=== PATIENT | male | born 1980 | race Native Hawaiian/Other Pacific Islander ===

== ENCOUNTER 2016-11-05 09:53 | Emergency (ER) | payer OTHER ==
[2016-11-05 10:48] LABS: BASO % 0.7 % (0.0-1.0); EOS # 0.2 K/mm3 (0.0-0.50); EOS % 2.7 % (0.0-3.0); LARGE UNSTAINED CELL # 0.1 K/mm3 (0.0-0.4); LARGE UNSTAINED CELL % 1.8 % (0.0-4.0); LYMPH # 1.8 K/mm3 (1.5-4.5); LYMPH % 30.5 % (24.0-44.0); MEAN CORPUSCULAR HEMOGLOBIN 29.7 pg (27.0-33.0); MEAN CORPUSCULAR HGB CONC 33.5 g/dl (32.0-36.5); MEAN CORPUSCULAR VOLUME 88.4 fl (80.0-96.0); MONO # 0.3 K/mm3 (0.0-0.8); NEUTROPHILS # 3.3 K/mm3 (1.8-7.7); NEUTROPHILS % 58.3 % (36.0-66.0); PLATELET COUNT, AUTOMATED 258 k/mm3 (150-450); RED CELL DISTRIBUTION WIDTH 12.6 % (11.5-14.5); WHITE BLOOD COUNT 5.7 K/mm3 (4.0-10.0)
--- NOTE | 2016-11-05 11:03 | REP ---
CT abdomen pelvis without IV and oral contrast: There are no comparisons. The visualized lung cruz are unremarkable. The unenhanced hepatic parenchyma, gallbladder, pancreas and spleen are unremarkable. The adrenals, unenhanced kidneys and abdominal aorta are unremarkable. There is no bowel distension. Pelvis: There are diverticula in the descending colon. There is pericolonic inflammation adjacent to the distal descending colon and proximal sigmoid colon compatible with diverticulitis. There is no pericolonic abscess. No pneumoperitoneum. However, there is a small focal density compatible with calcification at the lateral margin of the distal descending colon, extraluminal, within the area of inflammation of uncertain significance, possibility of perforated ingested material is raised. There is no ascites or adenopathy. The bladder is unremarkable. The appendix is not identified by CT there is no pericecal inflammation. Impression: Diverticulosis of the distal descending colon without pericolonic abscess. However, there is an extraluminal calcific density adjacent to the distal descending colon, possibly perforated ingested material. No ascites or pneumoperitoneum. No bowel distension. Signed by Dakotah Anders MD 11/05/2016 10:55 A
[2016-11-05 11:14] LABS: ALBUMIN 4.3 GM/DL (3.2-5.2); ALBUMIN/GLOBULIN RATIO 0.98 (1.00-1.93); BILIRUBIN,DIRECT 0.1 MG/DL (0.0-0.2); BILIRUBIN,TOTAL 0.9 MG/DL (0.2-1.0); CALCIUM LEVEL 9.3 MG/DL (8.5-10.1); CREATININE FOR GFR 1.63 MG/DL (0.70-1.30); GLOMERULAR FILTRATION RATE 51.5 (>60); POTASSIUM SERUM 3.9 MEQ/L (3.5-5.1); TOTAL PROTEIN 8.7 GM/DL (6.4-8.2)
[2016-11-05] MEDS ORDERED: metroNIDAZOLE/NACL 500MG(5MG/ML)100 ML BAG (S0030) As Ordered ONE (11:22)
[2016-11-05] MEDS ORDERED: CIPROFLOXACIN/D5W 400 MG/200 ML BAG (J0744) As Ordered ONE (11:22)
--- NOTE | 2016-11-05 14:12 | EDDOCDS ---
Physician Documentation [facility] Name: Eliseo Powell Age: 36 yrs Sex: Male : 1980 Arrival Date: 11/05/2016 Time: 09:53 Bed I4 / M4 Private MD: Etta [facility] [place] Disposition: 11/05/16 13:58 Discharged to Home/Self Care. Impression: Diverticulitis of large intestine with perforation and abscess without bleeding - OK TO D/C HOME PER DR. MILLS. - Condition is Stable. - Discharge Instructions: Diverticulitis. - Prescriptions for Cipro 500 mg Oral Tablet - take 1 tablet by ORAL route every 12 hours; 14 tablet. Flagyl 500 mg Oral Tablet - take 1 tablet by ORAL route every 8 hours for 10 days; 30 tablet. - Medication Reconciliation, Local Pharmacy Hours form. - Follow up: Jeet Mills MD; When: 1 - 2 days; Reason: Further diagnostic work-up, Recheck today's complaints, Continuance of care. - Problem is new. - Symptoms are unchanged. Historical: - Allergies: Ibuprofen (Upset stomach); - Home Meds: 1. none - PMHx: none; - PSHx: Appendectomy; right ACL; - Social history: No barriers to communication noted, The patient speaks fluent Frisian, Speaks appropriately for age, Smoking status: Patient uses tobacco products, light tobacco smoker. - Family history: Not pertinent. - : The pt / caregiver states he / she is not on anticoagulants. Home medication list is obtained from the patient. - Exposure Risk Screening:: None identified. Vital Signs: 11/05 09:55 BP 133 / 83; Pulse 65; Resp 16; Temp 98.3(O); Pulse Ox 96% on R/A; Weight 95.25 kg / elp 209.99 lbs (R); Height 5 ft. 6 in. (167.64 cm) (R); Pain 6/10; 13:25 BP 145 / 80; Pulse 60; Resp 18; Temp 96.3(O); Pulse Ox 100% on R/A; Pain 0/10; jml1 09:55 Body Mass Index 33.89 (95.25 kg, 167.64 cm) elp MDM: 10:33 Amylase Ordered. EDMS 10:34 Basic Metabolic Profile Ordered. EDMS 10:34 CBC with Diff Ordered. EDMS 10:34 Lipase Ordered. EDMS 10:34 Liver Profile Ordered. EDMS 10:34 CT ABD & PELVIS: No Contrast Ordered. EDMS 10:34 NOTHING BY MOUTH+DIET ordered. EDMS 10:35 GASTROINTESTINAL (GI) PANEL Ordered. EDMS 11:20 IV Saline Lock ordered. btw 11:20 Ciprofloxacin 400 mg IVPB at 200 mL/hr once over 60 mins ordered. btw 11:20 metroNIDAZOLE 500 mg IV at 100 mL/hr once over 60 mins ordered. btw 11:21 Basic Metabolic Profile Reviewed. btw 11:21 CBC with Diff Reviewed. btw 11:21 Liver Profile Reviewed. btw 11:21 Amylase Reviewed. btw 11:21 Lipase Reviewed. btw 13:55 Financial registration complete. mm15 14:05 [facility] Payment Agreement was scanned into [employer] and attached to record. mm15 Administered Medications: 11:28 Drug: Ciprofloxacin 400 mg [ciprofloxacin 400 mg/200 mL in 5 % dextrose intravenous mk4 piggyback] Route: IVPB; Rate: 200 mL/hr; Infused Over: 60 mins; Site: right antecubital; 12:37 Follow up: IV Status: Completed infusion; IV Intake: 200ml mcp 12:35 Drug: metroNIDAZOLE 500 mg [metronidazole 500 mg/100 mL-sodium chloride(iso) mcp intravenous piggyback] Route: IV; Rate: 100 mL/hr; Infused Over: 60 mins; Site: right antecubital; Signatures: Dispatcher [employer] EDMS Alejandra Simons RN RN jo3 Paolo Law PA PA btw Ha Cheng mm15 Tosin Alex RN RN mk4 Livier Thacker RN [facility] The chart was reviewed and I authenticate all verbal orders and agree with the evaluation and treatment provided.Corrections: (The following items were deleted from the chart) 10:35 10:34 GASTROINTESTINAL (GI) PANEL+NIECY ordered. EDMS EDMS 14:11 10:33 Stool samples ordered. btw mk4 Attachments: 14:05 [facility] Payment Agreement mm15 MTDD
--- NOTE | 2016-11-05 14:12 | EDDOCDS ---
Nurse's Notes [facility] Name: Eliseo Powell Age: 36 yrs Sex: Male : 1980 Arrival Date: 11/05/2016 Time: 09:53 Bed I4 / M4 Private MD: BRISA Quiles Diagnosis: Diverticulitis of large intestine with perforation and abscess without bleeding-OK TO D/C HOME PER DR. MILLS Presentation: 11/05 10:02 Presenting complaint: Patient states: Has LLQ pain for 3 days. Has also had diarrhea. jo3 Risk factors: the patient reports not having a history of previous torsion. Adult Sepsis Screening: The patient does not have new or worsening altered mentation. Patient's respiratory rate is less than 22. Systolic blood pressure is greater than 100. Patient has a qSOFA score of 0- Negative Sepsis Screen. Suicide/Homicide risk assessment- the patient denies having any suicidal and/or homicidal ideations and does not present with any other emotional, behavioral or mental health complaints. Status: The patient is a dependent. Transition of care: patient was not received from another setting of care. 10:02 Acuity: RUTH Level 3 jo3 10:02 Method Of Arrival: Walkin/Carried/Asstd jo3 Triage Assessment: 10:04 General: Appears in no apparent distress, comfortable, Behavior is appropriate for age, jo3 cooperative. Pain: Pain currently is 6 out of 10 on a pain scale. At worst was 8 out of 10 on a pain scale. HIV screening NA for this visit Offered previously. Neurological: Level of Consciousness is awake, alert, Oriented to person, place, time. Derm: Skin is pink, warm & dry. Historical: - Allergies: Ibuprofen (Upset stomach); - Home Meds: 1. none - PMHx: none; - PSHx: Appendectomy; right ACL; - Social history: No barriers to communication noted, The patient speaks fluent North Korean, Speaks appropriately for age, Smoking status: Patient uses tobacco products, light tobacco smoker. - Family history: Not pertinent. - : The pt / caregiver states he / she is not on anticoagulants. Home medication list is obtained from the patient. - Exposure Risk Screening:: None identified. Screenin:41 Screening information is obtained from the patient. Fall risk: No risks identified. jo3 Assistance ADL's: requires no assistance with activities of daily living. Abuse/DV Screen: The patient / caregiver reports he/she is: not in a situation that causes fear, pain or injury. Nutritional screening: No deficits noted. Advance Directives: There is no active DNR order. home support is adequate. Assessment: 10:41 General: Appears in no apparent distress, comfortable, Behavior is appropriate for age, jo3 cooperative, pleasant. Neurological: No deficits noted. Level of Consciousness is awake, alert, Oriented to person, place, time. Respiratory: Airway is patent Respiratory effort is even, unlabored. Derm: Skin is pink, warm & dry. 11:49 General: Appears in no apparent distress, sitting on edge of bed, IV infusing right ac, mk4 fam,stephen in room denies needs. 12:50 General: Appears in no apparent distress, Behavior is cooperative. Neurological: Level mk4 of Consciousness is awake, alert. Respiratory: Respiratory effort is even, unlabored. GI: Abdomen is non- distended. 14:08 Reassessment: Patient appears in no apparent distress at this time. Patient states mk4 feeling better. General: Appears in no apparent distress, Behavior is cooperative. GI: Abdomen is non- distended Bowel sounds present X 4 quads. Abd is tender to palpation X 4 quads. Vital Signs: 09:55 BP 133 / 83; Pulse 65; Resp 16; Temp 98.3(O); Pulse Ox 96% on R/A; Weight 95.25 kg (R); elp Height 5 ft. 6 in. (167.64 cm) (R); Pain 6/10; 13:25 BP 145 / 80; Pulse 60; Resp 18; Temp 96.3(O); Pulse Ox 100% on R/A; Pain 0/10; jml1 09:55 Body Mass Index 33.89 (95.25 kg, 167.64 cm) [facility] Vitals: 09:55 Log In Time: November 05, 2016 at 09:[address] [facility] ED Course: 09:54 Patient visited by Jory Chandler, XIOMY. elp 09:54 Etta Andrew is Private Physician. elp 09:54 Patient moved to Waiting elp 09:55 Patient visited by Jory Chandler PCA. elp 09:55 Patient moved to Pre RCE elp 10:04 Triage Initiated jo3 10:06 Patient moved to Triage 3 jo3 10:16 Paolo Law PA is PHCP. btw 10:16 Vesta Sierra MD is Attending Physician. btw 10:16 Patient visited by Paolo Law PA. btw 10:41 The patient / caregiver is instructed regarding the plan of care and ED course. jo3 10:41 Amylase Sent. jo3 10:41 Basic Metabolic Profile Sent. jo3 10:41 CBC with Diff Sent. jo3 10:41 Lipase Sent. jo3 10:41 Liver Profile Sent. jo3 10:41 Labs drawn. (by ED staff). Sent per order to lab. jo3 10:42 Patient visited by Alejandra Simons RN. jo3 10:43 Patient moved to TR2 jo3 11:08 Patient moved to I4 / M4 jo3 11:19 Patient visited by Tosin Alex, SARA. mk4 11:25 Patient visited by Livier Thacker RN. mcp 11:25 Patient has correct armband on for positive identification. Bed in low position. Call mcp light in reach. Adult w/ patient. 11:25 Inserted saline lock: 20 gauge in right antecubital area The patient tolerated the mcp procedure well. 11:45 CT ABD & PELVIS: No Contrast Returned. EDMS 11:49 No procedures done that require assistance. mk4 11:56 Patient visited by Tosin Alex RN. mk4 12:45 Patient visited by Tosin Alex, ASRA. mk4 13:19 Patient visited by Tosin Alex RN. mk4 13:26 Patient visited by Tutu Zheng. jml1 13:57 Jeet Mills MD is Referral Physician. btw 14:05 [facility] Payment Agreement was scanned into [employer] and attached to record. mm15 14:08 Discontinued IV lock bleeding controlled, pressure dressing applied. mk4 Administered Medications: 11:28 Drug: Ciprofloxacin 400 mg [ciprofloxacin 400 mg/200 mL in 5 % dextrose intravenous mk4 piggyback] Route: IVPB; Rate: 200 mL/hr; Infused Over: 60 mins; Site: right antecubital; 12:37 Follow up: IV Status: Completed infusion; IV Intake: 200ml mcp 12:35 Drug: metroNIDAZOLE 500 mg [metronidazole 500 mg/100 mL-sodium chloride(iso) mcp intravenous piggyback] Route: IV; Rate: 100 mL/hr; Infused Over: 60 mins; Site: right antecubital; Intake: 12:37 IV: 200.00ml; Total: 200.00ml. mcp Order Results: Lab Order: Amylase; SPEC'M 11/05/16 10:38 Test: AMYLASE; Value: 46; Range: 25-115; Units: U/L; Status: F Lab Order: Basic Metabolic Profile; SPEC' 11/05/16 10:38 Test: GLUCOSE, FASTING; Value: 91; Range: 70-105; Units: MG/DL; Status: F Test: BLOOD UREA NITROGEN; Value: 15; Range: 7-18; Units: MG/DL; Status: F Test: CREATININE FOR GFR; Value: 1.63; Range: 0.70-1.30; Abnormal: Above high normal; Units: MG/DL; Status: F Test: GLOMERULAR FILTRATION RATE; Value: 51.5; Range: >60; Abnormal: Below low normal; Status: F Test: SODIUM LEVEL; Value: 141; Range: 136-145; Units: MEQ/L; Status: F Test: POTASSIUM SERUM; Value: 3.9; Range: 3.5-5.1; Units: MEQ/L; Status: F Test: CHLORIDE LEVEL; Value: 106; Range: 98-107; Units: MEQ/L; Status: F Test: CARBON DIOXIDE LEVEL; Value: 29; Range: 21-32; Units: MEQ/L; Status: F Test: ANION GAP; Value: 6; Range: 8-16; Abnormal: Below low normal; Units: MEQ/L; Status: F Test: CALCIUM LEVEL; Value: 9.3; Range: 8.5-10.1; Units: MG/DL; Status: F Test Note: ; Units are mL/min/1.73 m2 Chronic Kidney Disease Staging per NKF: Stage I & II GFR >=60 Normal to Mildly Decreased Stage III GFR 30-59 Moderately Decreased Stage IV GFR 15-29 Severely Decreased Stage V GFR <15 Very Little GFR Left ESRD GFR <15 on STAFFING PROGRAM MANAGER Lab Order: CBC with Diff; SPEC'11/05/16 10:38 Test: WHITE BLOOD COUNT; Value: 5.7; Range: 4.0-10.0; Units: K/mm3; Status: F Test: RED BLOOD COUNT; Value: 5.49; Range: 4.30-6.10; Units: M/mm3; Status: F Test: HEMOGLOBIN; Value: 16.3; Range: 14.0-18.0; Units: g/dl; Status: F Test: HEMATOCRIT; Value: 48.5; Range: 42.0-52.0; Units: %; Status: F Test: MEAN CORPUSCULAR VOLUME; Value: 88.4; Range: 80.0-96.0; Units: fl; Status: F Test: MEAN CORPUSCULAR HEMOGLOBIN; Value: 29.7; Range: 27.0-33.0; Units: pg; Status: F Test: MEAN CORPUSCULAR HGB CONC; Value: 33.5; Range: 32.0-36.5; Units: g/dl; Status: F Test: RED CELL DISTRIBUTION WIDTH; Value: 12.6; Range: 11.5-14.5; Units: %; Status: F Test: PLATELET COUNT, AUTOMATED; Value: 258; Range: 150-450; Units: k/mm3; Status: F Test: NEUTROPHILS %; Value: 58.3; Range: 36.0-66.0; Units: %; Status: F Test: LYMPH %; Value: 30.5; Range: 24.0-44.0; Units: %; Status: F Test: MONO %; Value: 6.0; Range: 0.0-5.0; Abnormal: Above high normal; Units: %; Status: F Test: EOS %; Value: 2.7; Range: 0.0-3.0; Units: %; Status: F Test: BASO %; Value: 0.7; Range: 0.0-1.0; Units: %; Status: F Test: LARGE UNSTAINED CELL %; Value: 1.8; Range: 0.0-4.0; Units: %; Status: F Test: NEUTROPHILS #; Value: 3.3; Range: 1.8-7.7; Units: K/mm3; Status: F Test: LYMPH #; Value: 1.8; Range: 1.5-4.5; Units: K/mm3; Status: F Test: MONO #; Value: 0.3; Range: 0.0-0.8; Units: K/mm3; Status: F Test: EOS #; Value: 0.2; Range: 0.0-0.50; Units: K/mm3; Status: F Test: BASO #; Value: 0.0; Range: 0.0-0.2; Units: K/mm3; Status: F Test: LARGE UNSTAINED CELL #; Value: 0.1; Range: 0.0-0.4; Units: K/mm3; Status: F Lab Order: Lipase; SPEC'M 11/05/16 10:38 Test: LIPASE; Value: 147; Range: 73-393; Units: U/L; Status: F Lab Order: Liver Profile; SPEC'M 11/05/16 10:38 Test: AST/SGOT; Value: 21; Range: 15-37; Units: U/L; Status: F Test: ALT/SGPT; Value: 33; Range: 12-78; Units: U/L; Status: F Test: ALKALINE PHOSPHATASE; Value: 87; Range: 45-117; Units: U/L; Status: F Test: BILIRUBIN,TOTAL; Value: 0.9; Range: 0.2-1.0; Units: MG/DL; Status: F Test: BILIRUBIN,DIRECT; Value: 0.1; Range: 0.0-0.2; Units: MG/DL; Status: F Test: TOTAL PROTEIN; Value: 8.7; Range: 6.4-8.2; Abnormal: Above high normal; Units: GM/DL; Status: F Test: ALBUMIN; Value: 4.3; Range: 3.2-5.2; Units: GM/DL; Status: F Test: ALBUMIN/GLOBULIN RATIO; Value: 0.98; Range: 1.00-1.93; Abnormal: Below low normal; Status: F Radiology Order: CT ABD & PELVIS: No Contrast Test: CT ABD & PELVIS: No Contrast REASON FOR EXAMINATION: Diverticulitis; CT abdomen pelvis without IV and oral contrast:; ; There are no comparisons.; ; The visualized lung cruz are unremarkable.; ; The unenhanced hepatic parenchyma, gallbladder, pancreas and spleen are; unremarkable.; ; The adrenals, unenhanced kidneys and abdominal aorta are unremarkable.; ; There is no bowel distension.; ; Pelvis:; ; There are diverticula in the descending colon. There is pericolonic inflammation; adjacent to the distal descending colon and proximal sigmoid colon compatible; with diverticulitis. There is no pericolonic abscess. No pneumoperitoneum.; However, there is a small focal density compatible with calcification at the; lateral margin of the distal descending colon, extraluminal, within the area of; inflammation of uncertain significance, possibility of perforated ingested; material is raised.; ; There is no ascites or adenopathy.; ; The bladder is unremarkable. The appendix is not identified by CT there is no; pericecal inflammation.; ; Impression:; ; Diverticulosis of the distal descending colon without pericolonic abscess.; However, there is an extraluminal calcific density adjacent to the distal; descending colon, possibly perforated ingested material.; ; No ascites or pneumoperitoneum. No bowel distension.; ; ; Signed by; Dakotah Anders MD 11/05/2016 10:55 A; Outcome: 13:58 Discharge ordered by Provider. btw 14:08 Discharge Assessment: Patient awake, alert and oriented x 3. No cognitive and/or mk4 functional deficits noted. Patient verbalized understanding of disposition instructions. Patient awake and alert. Discharge Assessment: patient administered narcotics - no. The following High Risk Discharge criteria are identified: None. Condition: stable. CT Study completed. Property sent home with patient. 14:11 Patient left the ED. mk4 Signatures: Dispatcher [employer] EDMS Livier Thacker, RN Alejandra Briceno mcp, RN RN jo3 Paolo Law PA PA btw Tutu Zheng jml1 Ha Cheng mm15 Jory Chandler, XIOMY REHAB SPECIALIST Tosin Mccoy, SARA RN mk4 MTDD
--- NOTE | 2016-11-07 15:12 | EDDOCDS ---
Physician Documentation [facility] Name: Eliseo Powell Age: 36 yrs Sex: Male : 1980 Arrival Date: 11/05/2016 Time: 09:53 Bed I4 / M4 Private MD: Etta [facility] [place] Disposition: 11/05/16 13:58 Discharged to Home/Self Care. Impression: Diverticulitis of large intestine with perforation and abscess without bleeding - OK TO D/C HOME PER DR. MILLS. - Condition is Stable. - Discharge Instructions: Diverticulitis. - Prescriptions for Cipro 500 mg Oral Tablet - take 1 tablet by ORAL route every 12 hours; 14 tablet. Flagyl 500 mg Oral Tablet - take 1 tablet by ORAL route every 8 hours for 10 days; 30 tablet. - Medication Reconciliation, Local Pharmacy Hours form. - Follow up: Jeet Mills MD; When: 1 - 2 days; Reason: Further diagnostic work-up, Recheck today's complaints, Continuance of care. - Problem is new. - Symptoms are unchanged. Historical: - Allergies: Ibuprofen (Upset stomach); - Home Meds: 1. none - PMHx: none; - PSHx: Appendectomy; right ACL; - Social history: No barriers to communication noted, The patient speaks fluent Pashto, Speaks appropriately for age, Smoking status: Patient uses tobacco products, light tobacco smoker. - Family history: Not pertinent. - : The pt / caregiver states he / she is not on anticoagulants. Home medication list is obtained from the patient. - Exposure Risk Screening:: None identified. Vital Signs: 11/05 09:55 BP 133 / 83; Pulse 65; Resp 16; Temp 98.3(O); Pulse Ox 96% on R/A; Weight 95.25 kg / elp 209.99 lbs (R); Height 5 ft. 6 in. (167.64 cm) (R); Pain 6/10; 13:25 BP 145 / 80; Pulse 60; Resp 18; Temp 96.3(O); Pulse Ox 100% on R/A; Pain 0/10; jml1 09:55 Body Mass Index 33.89 (95.25 kg, 167.64 cm) elp MDM: 10:33 Amylase Ordered. EDMS 10:34 Basic Metabolic Profile Ordered. EDMS 10:34 CBC with Diff Ordered. EDMS 10:34 Lipase Ordered. EDMS 10:34 Liver Profile Ordered. EDMS 10:34 CT ABD & PELVIS: No Contrast Ordered. EDMS 10:34 NOTHING BY MOUTH+DIET ordered. EDMS 10:35 GASTROINTESTINAL (GI) PANEL Ordered. EDMS 11:20 IV Saline Lock ordered. btw 11:20 Ciprofloxacin 400 mg IVPB at 200 mL/hr once over 60 mins ordered. btw 11:20 metroNIDAZOLE 500 mg IV at 100 mL/hr once over 60 mins ordered. btw 11:21 Basic Metabolic Profile Reviewed. btw 11:21 CBC with Diff Reviewed. btw 11:21 Liver Profile Reviewed. btw 11:21 Amylase Reviewed. btw 11:21 Lipase Reviewed. btw 13:55 Financial registration complete. 14:05 [facility] Payment Agreement was scanned into [employer] and attached to record. [facility] 11/06 09:15 T-Sheet-- Draft Copy was scanned into [employer] and attached to record. gb Administered Medications: 11/05 11:28 Drug: Ciprofloxacin 400 mg [ciprofloxacin 400 mg/200 mL in 5 % dextrose intravenous mk4 piggyback] Route: IVPB; Rate: 200 mL/hr; Infused Over: 60 mins; Site: right antecubital; 12:37 Follow up: IV Status: Completed infusion; IV Intake: 200ml mcp 12:35 Drug: metroNIDAZOLE 500 mg [metronidazole 500 mg/100 mL-sodium chloride(iso) mcp intravenous piggyback] Route: IV; Rate: 100 mL/hr; Infused Over: 60 mins; Site: right antecubital; Signatures: Dispatcher [employer] EDMS [place] Segovia, Reg Reg gb Alejandra Simons RN RN Paolo Luciano PA PA btw Ha Cheng mm15 Tosin Alex RN RN mk4 Peters, Mary RN [facility] The chart was reviewed and I authenticate all verbal orders and agree with the evaluation and treatment provided.Corrections: (The following items were deleted from the chart) 10:35 10:34 GASTROINTESTINAL (GI) PANEL+NIECY ordered. EDMS EDMS 14:11 10:33 Stool samples ordered. btw mk4 Attachments: 14:05 [facility] Payment Agreement [facility] 02/03 09:15 T-Sheet-- Draft Copy gb Chart Complete MTDD
--- NOTE | 2016-11-07 15:12 | EDDOCDS ---
Physician Documentation [facility] Name: Eliseo Powell Age: 36 yrs Sex: Male : 1980 Arrival Date: 11/05/2016 Time: 09:53 Bed I4 / M4 Private MD: Etta [facility] [place] Disposition: 11/05/16 13:58 Discharged to Home/Self Care. Impression: Diverticulitis of large intestine with perforation and abscess without bleeding - OK TO D/C HOME PER DR. MILLS. - Condition is Stable. - Discharge Instructions: Diverticulitis. - Prescriptions for Cipro 500 mg Oral Tablet - take 1 tablet by ORAL route every 12 hours; 14 tablet. Flagyl 500 mg Oral Tablet - take 1 tablet by ORAL route every 8 hours for 10 days; 30 tablet. - Medication Reconciliation, Local Pharmacy Hours form. - Follow up: Jeet Mills MD; When: 1 - 2 days; Reason: Further diagnostic work-up, Recheck today's complaints, Continuance of care. - Problem is new. - Symptoms are unchanged. Historical: - Allergies: Ibuprofen (Upset stomach); - Home Meds: 1. none - PMHx: none; - PSHx: Appendectomy; right ACL; - Social history: No barriers to communication noted, The patient speaks fluent Armenian, Speaks appropriately for age, Smoking status: Patient uses tobacco products, light tobacco smoker. - Family history: Not pertinent. - : The pt / caregiver states he / she is not on anticoagulants. Home medication list is obtained from the patient. - Exposure Risk Screening:: None identified. Vital Signs: 11/05 09:55 BP 133 / 83; Pulse 65; Resp 16; Temp 98.3(O); Pulse Ox 96% on R/A; Weight 95.25 kg / elp 209.99 lbs (R); Height 5 ft. 6 in. (167.64 cm) (R); Pain 6/10; 13:25 BP 145 / 80; Pulse 60; Resp 18; Temp 96.3(O); Pulse Ox 100% on R/A; Pain 0/10; jml1 09:55 Body Mass Index 33.89 (95.25 kg, 167.64 cm) elp MDM: 10:33 Amylase Ordered. EDMS 10:34 Basic Metabolic Profile Ordered. EDMS 10:34 CBC with Diff Ordered. EDMS 10:34 Lipase Ordered. EDMS 10:34 Liver Profile Ordered. EDMS 10:34 CT ABD & PELVIS: No Contrast Ordered. EDMS 10:34 NOTHING BY MOUTH+DIET ordered. EDMS 10:35 GASTROINTESTINAL (GI) PANEL Ordered. EDMS 11:20 IV Saline Lock ordered. btw 11:20 Ciprofloxacin 400 mg IVPB at 200 mL/hr once over 60 mins ordered. btw 11:20 metroNIDAZOLE 500 mg IV at 100 mL/hr once over 60 mins ordered. btw 11:21 Basic Metabolic Profile Reviewed. btw 11:21 CBC with Diff Reviewed. btw 11:21 Liver Profile Reviewed. btw 11:21 Amylase Reviewed. btw 11:21 Lipase Reviewed. btw 13:55 Financial registration complete. 14:05 [facility] Payment Agreement was scanned into [employer] and attached to record. [facility] 11/06 09:15 T-Sheet-- Draft Copy was scanned into [employer] and attached to record. gb Administered Medications: 11/05 11:28 Drug: Ciprofloxacin 400 mg [ciprofloxacin 400 mg/200 mL in 5 % dextrose intravenous mk4 piggyback] Route: IVPB; Rate: 200 mL/hr; Infused Over: 60 mins; Site: right antecubital; 12:37 Follow up: IV Status: Completed infusion; IV Intake: 200ml mcp 12:35 Drug: metroNIDAZOLE 500 mg [metronidazole 500 mg/100 mL-sodium chloride(iso) mcp intravenous piggyback] Route: IV; Rate: 100 mL/hr; Infused Over: 60 mins; Site: right antecubital; Signatures: Dispatcher [employer] EDMS Venice Segovia, Reg Reg gb Alejandra Simons RN RN Paolo Luciano PA PA btw Ha Cheng mm15 Tosin Alex RN RN mk4 Peters, Mary RN [facility] The chart was reviewed and I authenticate all verbal orders and agree with the evaluation and treatment provided.Corrections: (The following items were deleted from the chart) 10:35 10:34 GASTROINTESTINAL (GI) PANEL+NIECY ordered. EDMS EDMS 14:11 10:33 Stool samples ordered. btw mk4 Attachments: 14:05 [facility] Payment Agreement [facility] 02/03 09:15 T-Sheet-- Draft Copy gb Chart Complete MTDD
--- NOTE | 2016-11-07 15:12 | EDDOCDS ---
Nurse's Notes [facility] Name: Eliseo Powell Age: 36 yrs Sex: Male : 1980 Arrival Date: 11/05/2016 Time: 09:53 Bed I4 / M4 Private MD: BRISA Quiles Diagnosis: Diverticulitis of large intestine with perforation and abscess without bleeding-OK TO D/C HOME PER DR. MILLS Presentation: 11/05 10:02 Presenting complaint: Patient states: Has LLQ pain for 3 days. Has also had diarrhea. jo3 Risk factors: the patient reports not having a history of previous torsion. Adult Sepsis Screening: The patient does not have new or worsening altered mentation. Patient's respiratory rate is less than 22. Systolic blood pressure is greater than 100. Patient has a qSOFA score of 0- Negative Sepsis Screen. Suicide/Homicide risk assessment- the patient denies having any suicidal and/or homicidal ideations and does not present with any other emotional, behavioral or mental health complaints. Status: The patient is a dependent. Transition of care: patient was not received from another setting of care. 10:02 Acuity: RUTH Level 3 jo3 10:02 Method Of Arrival: Walkin/Carried/Asstd jo3 Triage Assessment: 10:04 General: Appears in no apparent distress, comfortable, Behavior is appropriate for age, jo3 cooperative. Pain: Pain currently is 6 out of 10 on a pain scale. At worst was 8 out of 10 on a pain scale. HIV screening NA for this visit Offered previously. Neurological: Level of Consciousness is awake, alert, Oriented to person, place, time. Derm: Skin is pink, warm & dry. Historical: - Allergies: Ibuprofen (Upset stomach); - Home Meds: 1. none - PMHx: none; - PSHx: Appendectomy; right ACL; - Social history: No barriers to communication noted, The patient speaks fluent Hong Konger, Speaks appropriately for age, Smoking status: Patient uses tobacco products, light tobacco smoker. - Family history: Not pertinent. - : The pt / caregiver states he / she is not on anticoagulants. Home medication list is obtained from the patient. - Exposure Risk Screening:: None identified. Screenin:41 Screening information is obtained from the patient. Fall risk: No risks identified. jo3 Assistance ADL's: requires no assistance with activities of daily living. Abuse/DV Screen: The patient / caregiver reports he/she is: not in a situation that causes fear, pain or injury. Nutritional screening: No deficits noted. Advance Directives: There is no active DNR order. home support is adequate. Assessment: 10:41 General: Appears in no apparent distress, comfortable, Behavior is appropriate for age, jo3 cooperative, pleasant. Neurological: No deficits noted. Level of Consciousness is awake, alert, Oriented to person, place, time. Respiratory: Airway is patent Respiratory effort is even, unlabored. Derm: Skin is pink, warm & dry. 11:49 General: Appears in no apparent distress, sitting on edge of bed, IV infusing right ac, mk4 fam,stephen in room denies needs. 12:50 General: Appears in no apparent distress, Behavior is cooperative. Neurological: Level mk4 of Consciousness is awake, alert. Respiratory: Respiratory effort is even, unlabored. GI: Abdomen is non- distended. 14:08 Reassessment: Patient appears in no apparent distress at this time. Patient states mk4 feeling better. General: Appears in no apparent distress, Behavior is cooperative. GI: Abdomen is non- distended Bowel sounds present X 4 quads. Abd is tender to palpation X 4 quads. Vital Signs: 09:55 BP 133 / 83; Pulse 65; Resp 16; Temp 98.3(O); Pulse Ox 96% on R/A; Weight 95.25 kg (R); elp Height 5 ft. 6 in. (167.64 cm) (R); Pain 6/10; 13:25 BP 145 / 80; Pulse 60; Resp 18; Temp 96.3(O); Pulse Ox 100% on R/A; Pain 0/10; jml1 09:55 Body Mass Index 33.89 (95.25 kg, 167.64 cm) [facility] Vitals: 09:55 Log In Time: November 05, 2016 at 09:42. [facility] ED Course: 09:54 Patient visited by Jory Chandler, XIOMY. elp 09:54 Etta Andrew is Private Physician. elp 09:54 Patient moved to Waiting elp 09:55 Patient visited by Jory Chandler PCA. elp 09:55 Patient moved to Pre RCE elp 10:04 Triage Initiated jo3 10:06 Patient moved to Triage 3 jo3 10:16 Paolo Law PA is PHCP. btw 10:16 Vesta Sierra MD is Attending Physician. btw 10:16 Patient visited by Paolo Law PA. btw 10:41 The patient / caregiver is instructed regarding the plan of care and ED course. jo3 10:41 Amylase Sent. jo3 10:41 Basic Metabolic Profile Sent. jo3 10:41 CBC with Diff Sent. jo3 10:41 Lipase Sent. jo3 10:41 Liver Profile Sent. jo3 10:41 Labs drawn. (by ED staff). Sent per order to lab. jo3 10:42 Patient visited by Alejandra Simons RN. jo3 10:43 Patient moved to TR2 jo3 11:08 Patient moved to I4 / M4 jo3 11:19 Patient visited by Tosin Alex, SARA. mk4 11:25 Patient visited by Livier Thacker RN. mcp 11:25 Patient has correct armband on for positive identification. Bed in low position. Call mcp light in reach. Adult w/ patient. 11:25 Inserted saline lock: 20 gauge in right antecubital area The patient tolerated the mcp procedure well. 11:45 CT ABD & PELVIS: No Contrast Returned. EDMS 11:49 No procedures done that require assistance. mk4 11:56 Patient visited by Tosin Alex RN. mk4 12:45 Patient visited by Tosin Alex, SARA. mk4 13:19 Patient visited by Tosin Alex RN. mk4 13:26 Patient visited by Tutu Zheng. jml1 13:57 Jeet Mills MD is Referral Physician. btw 14:05 [facility] Payment Agreement was scanned into [employer] and attached to record. mm15 14:08 Discontinued IV lock bleeding controlled, pressure dressing applied. mk4 02 09:15 T-Sheet-- Draft Copy was scanned into [employer] and attached to record. gb Administered Medications: 11/05 11:28 Drug: Ciprofloxacin 400 mg [ciprofloxacin 400 mg/200 mL in 5 % dextrose intravenous mk4 piggyback] Route: IVPB; Rate: 200 mL/hr; Infused Over: 60 mins; Site: right antecubital; 12:37 Follow up: IV Status: Completed infusion; IV Intake: 200ml mcp 12:35 Drug: metroNIDAZOLE 500 mg [metronidazole 500 mg/100 mL-sodium chloride(iso) mcp intravenous piggyback] Route: IV; Rate: 100 mL/hr; Infused Over: 60 mins; Site: right antecubital; Intake: 12:37 IV: 200.00ml; Total: 200.00ml. mcp Order Results: Lab Order: Amylase; SPEC'M 11/05/16 10:38 Test: AMYLASE; Value: 46; Range: 25-115; Units: U/L; Status: F Lab Order: Basic Metabolic Profile; SPEC'M 11/05/16 10:38 Test: GLUCOSE, FASTING; Value: 91; Range: 70-105; Units: MG/DL; Status: F Test: BLOOD UREA NITROGEN; Value: 15; Range: 7-18; Units: MG/DL; Status: F Test: CREATININE FOR GFR; Value: 1.63; Range: 0.70-1.30; Abnormal: Above high normal; Units: MG/DL; Status: F Test: GLOMERULAR FILTRATION RATE; Value: 51.5; Range: >60; Abnormal: Below low normal; Status: F Test: SODIUM LEVEL; Value: 141; Range: 136-145; Units: MEQ/L; Status: F Test: POTASSIUM SERUM; Value: 3.9; Range: 3.5-5.1; Units: MEQ/L; Status: F Test: CHLORIDE LEVEL; Value: 106; Range: 98-107; Units: MEQ/L; Status: F Test: CARBON DIOXIDE LEVEL; Value: 29; Range: 21-32; Units: MEQ/L; Status: F Test: ANION GAP; Value: 6; Range: 8-16; Abnormal: Below low normal; Units: MEQ/L; Status: F Test: CALCIUM LEVEL; Value: 9.3; Range: 8.5-10.1; Units: MG/DL; Status: F Test Note: ; Units are mL/min/1.73 m2 Chronic Kidney Disease Staging per NKF: Stage I & II GFR >=60 Normal to Mildly Decreased Stage III GFR 30-59 Moderately Decreased Stage IV GFR 15-29 Severely Decreased Stage V GFR <15 Very Little GFR Left ESRD GFR <15 on TELEPHONE [employer]PERATORS SUPERVISOR Lab Order: CBC with Diff; SPEC'M 11/05/16 10:38 Test: WHITE BLOOD COUNT; Value: 5.7; Range: 4.0-10.0; Units: K/mm3; Status: F Test: RED BLOOD COUNT; Value: 5.49; Range: 4.30-6.10; Units: M/mm3; Status: F Test: HEMOGLOBIN; Value: 16.3; Range: 14.0-18.0; Units: g/dl; Status: F Test: HEMATOCRIT; Value: 48.5; Range: 42.0-52.0; Units: %; Status: F Test: MEAN CORPUSCULAR VOLUME; Value: 88.4; Range: 80.0-96.0; Units: fl; Status: F Test: MEAN CORPUSCULAR HEMOGLOBIN; Value: 29.7; Range: 27.0-33.0; Units: pg; Status: F Test: MEAN CORPUSCULAR HGB CONC; Value: 33.5; Range: 32.0-36.5; Units: g/dl; Status: F Test: RED CELL DISTRIBUTION WIDTH; Value: 12.6; Range: 11.5-14.5; Units: %; Status: F Test: PLATELET COUNT, AUTOMATED; Value: 258; Range: 150-450; Units: k/mm3; Status: F Test: NEUTROPHILS %; Value: 58.3; Range: 36.0-66.0; Units: %; Status: F Test: LYMPH %; Value: 30.5; Range: 24.0-44.0; Units: %; Status: F Test: MONO %; Value: 6.0; Range: 0.0-5.0; Abnormal: Above high normal; Units: %; Status: F Test: EOS %; Value: 2.7; Range: 0.0-3.0; Units: %; Status: F Test: BASO %; Value: 0.7; Range: 0.0-1.0; Units: %; Status: F Test: LARGE UNSTAINED CELL %; Value: 1.8; Range: 0.0-4.0; Units: %; Status: F Test: NEUTROPHILS #; Value: 3.3; Range: 1.8-7.7; Units: K/mm3; Status: F Test: LYMPH #; Value: 1.8; Range: 1.5-4.5; Units: K/mm3; Status: F Test: MONO #; Value: 0.3; Range: 0.0-0.8; Units: K/mm3; Status: F Test: EOS #; Value: 0.2; Range: 0.0-0.50; Units: K/mm3; Status: F Test: BASO #; Value: 0.0; Range: 0.0-0.2; Units: K/mm3; Status: F Test: LARGE UNSTAINED CELL #; Value: 0.1; Range: 0.0-0.4; Units: K/mm3; Status: F Lab Order: Lipase; SPEC' 11/05/16 10:38 Test: LIPASE; Value: 147; Range: 73-393; Units: U/L; Status: F Lab Order: Liver Profile; SPEC' 11/05/16 10:38 Test: AST/SGOT; Value: 21; Range: 15-37; Units: U/L; Status: F Test: ALT/SGPT; Value: 33; Range: 12-78; Units: U/L; Status: F Test: ALKALINE PHOSPHATASE; Value: 87; Range: 45-117; Units: U/L; Status: F Test: BILIRUBIN,TOTAL; Value: 0.9; Range: 0.2-1.0; Units: MG/DL; Status: F Test: BILIRUBIN,DIRECT; Value: 0.1; Range: 0.0-0.2; Units: MG/DL; Status: F Test: TOTAL PROTEIN; Value: 8.7; Range: 6.4-8.2; Abnormal: Above high normal; Units: GM/DL; Status: F Test: ALBUMIN; Value: 4.3; Range: 3.2-5.2; Units: GM/DL; Status: F Test: ALBUMIN/GLOBULIN RATIO; Value: 0.98; Range: 1.00-1.93; Abnormal: Below low normal; Status: F Radiology Order: CT ABD & PELVIS: No Contrast Test: CT ABD & PELVIS: No Contrast REASON FOR EXAMINATION: Diverticulitis; CT abdomen pelvis without IV and oral contrast:; ; There are no comparisons.; ; The visualized lung cruz are unremarkable.; ; The unenhanced hepatic parenchyma, gallbladder, pancreas and spleen are; unremarkable.; ; The adrenals, unenhanced kidneys and abdominal aorta are unremarkable.; ; There is no bowel distension.; ; Pelvis:; ; There are diverticula in the descending colon. There is pericolonic inflammation; adjacent to the distal descending colon and proximal sigmoid colon compatible; with diverticulitis. There is no pericolonic abscess. No pneumoperitoneum.; However, there is a small focal density compatible with calcification at the; lateral margin of the distal descending colon, extraluminal, within the area of; inflammation of uncertain significance, possibility of perforated ingested; material is raised.; ; There is no ascites or adenopathy.; ; The bladder is unremarkable. The appendix is not identified by CT there is no; pericecal inflammation.; ; Impression:; ; Diverticulosis of the distal descending colon without pericolonic abscess.; However, there is an extraluminal calcific density adjacent to the distal; descending colon, possibly perforated ingested material.; ; No ascites or pneumoperitoneum. No bowel distension.; ; ; Signed by; Dakotah Anders MD 11/05/2016 10:55 A; Outcome: 13:58 Discharge ordered by Provider. btw 14:08 Discharge Assessment: Patient awake, alert and oriented x 3. No cognitive and/or mk4 functional deficits noted. Patient verbalized understanding of disposition instructions. Patient awake and alert. Discharge Assessment: patient administered narcotics - no. The following High Risk Discharge criteria are identified: None. Condition: stable. CT Study completed. Property sent home with patient. 14:11 Patient left the ED. mk4 Signatures: Dispatcher [employer] Livier Terrell, RN Venice Carmichael mcp, Tez Reg Alejandra Hess RN RN [email or web address] Paolo Law PA PA btw Tutu Zheng jml1 Ha Cheng mm15 Jory Chandler, XIOMY ASSISTANT CHIEF OF POLICE Tosin Mccoy RN RN [email or web address] Chart Complete MTDD
== END 2016-11-05 14:11 | disposition home or self-care (01) ==
LOC: M ED 09:53
DX: K57.20 Diverticulitis of large intestine with perforation and abscess without bleeding (principal); R10.32 Left lower quadrant pain; R19.7 Diarrhea, unspecified; Z90.89 Acquired absence of other organs; F17.200 Nicotine dependence, unspecified, uncomplicated; Z88.6 Allergy status to analgesic agent
CPT/HCPCS: 36415; 74176; 80048; 80076; 82150; 83690; 85025; 96365; 96375; 99284; J0744

== ENCOUNTER → 2016-12-30 | Outpatient (CLI) | payer OTHER ==
[~2016-12-30] VITALS: Ht 167.6 cm; Wt 95.3 kg
[~2016-12-30] MED LIST: LIDOCAINE 2% INJ 100 MG/5 ML SDV (FOR ANES.) As Ordered ONE; NS 1,000 ML IV SCH; PROPOFOL 200 MG/20 ML VIAL As Ordered ONE
--- NOTE | 2016-12-30 14:11 | ROOR ---
Patient Name: Eliseo Powell Procedure Date: 12/30/2016 1:41 PM Date of : 1980 Age: 36 Room: [facility] Gender: Male Note Status: Finalized Procedure: Colonoscopy Indications: Abnormal CT of the GI tract, Suspected diverticulitis Providers: Jeet Mills MD Referring MD: PAM OROZCO MD Requesting Provider: Medicines: Monitored Anesthesia Care Complications: No immediate complications. Procedure: Pre-Anesthesia Assessment: - Prior to the procedure, a History and Physical was performed, and patient medications and allergies were reviewed. The patient is competent. The risks and benefits of the procedure and the sedation options and risks were discussed with the patient. All questions were answered and informed consent was obtained. Patient identification and proposed procedure were verified by the physician, the nurse and the anesthesiologist in the endoscopy suite. Mental Status Examination: alert and oriented. Airway Examination: normal oropharyngeal airway and neck mobility. Respiratory Examination: clear to auscultation. CV Examination: normal. Prophylactic Antibiotics: The patient does not require prophylactic antibiotics. Prior Anticoagulants: The patient has taken no previous anticoagulant or antiplatelet agents. ASA Grade Assessment: I - A normal, healthy patient. After reviewing the risks and benefits, the patient was deemed in satisfactory condition to undergo the procedure. The anesthesia plan was to use monitored anesthesia care (MAC). Immediately prior to administration of medications, the patient was re-assessed for adequacy to receive sedatives. The heart rate, respiratory rate, oxygen saturations, blood pressure, adequacy of pulmonary ventilation, and response to care were monitored throughout the procedure. The physical status of the patient was re-assessed after the procedure. The Colonoscope was introduced through the anus and advanced to the cecum, identified by appendiceal orifice and ileocecal valve. The colonoscopy was performed without difficulty. The patient tolerated the procedure well. The quality of the bowel preparation was good. Findings: The perianal and digital rectal examinations were normal. A 5 to 7 mm polyp was found in the sigmoid colon. The polyp was pedunculated. The polyp was removed with a hot snare. Resection and retrieval were complete. Estimated blood loss: none. The entire examined colon appeared normal. Impression: - One 5 to 7 mm polyp in the sigmoid colon, removed with a hot snare. Resected and retrieved. - The entire examined colon is normal. - No diverticula found - The distal rectum and anal verge are normal on retroflexion view. Recommendation: - Discharge patient to home (ambulatory). Jeet Mills MD Jeet Mills MD 12/30/2016 2:10:46 PM This report has been signed electronically. Number of Addenda: 0 Note Initiated On: 12/30/2016 1:41 PM Estimated Blood Loss: Estimated blood loss: none.
[2016-12-30 14:15] VITALS: BP 118/63
== END ==
LOC: M OPP 11:51
PROVIDERS: ATTEND Surgery
DX: R93.3 Abnormal findings on diagnostic imaging of other parts of digestive tract (principal); D12.5 Benign neoplasm of sigmoid colon; R19.5 Other fecal abnormalities; F17.200 Nicotine dependence, unspecified, uncomplicated; Z88.6 Allergy status to analgesic agent